=== PATIENT | female | born 1940 | race Caucasian/White ===

== ENCOUNTER 2019-06-19 09:49 | Outpatient (CLI) | payer MEDICARE, SELFPAY ==
[2019-06-19] VITALS (9 sets, daily range): BP systolic 128–154; BP diastolic 65–81; PULSE 67–85; RESP 15–16; TEMP 36.1; O2SAT 94–100
--- NOTE | 2019-06-19 09:51 | DI.RAD.S_ITS ---
PROCEDURE: PAIN C/T INTERLAMINAR INJECT INDICATIONS: RADICULOPATHY FINDINGS: Fluoroscopic spot filming was performed to verify placement of spinal needles at the C6-7 level(s), as labeled on the films. Appropriate location(s) of the needle tip(s) was confirmed by injection of iodinated contrast. IMPRESSION: Successful needle tip localization over the neck midline at the C6-7 interlaminar level for epidural steroid injection. Dictated by: César Dumont M.D. on 06/19/2019 at 14:17 Approved by: César Dumont M.D. on 06/19/2019 at 14:17
[2019-06-19] MEDS: MIDAZOLAM 5 MG/5 ML VIAL IV (12:00)
[2019-06-19] MEDS: IOPAMIDOL 15 ML VIAL 3 ML INJ (12:07)
[2019-06-19] MEDS: DEXAMETHASONE 10 MG/ML VIAL 20 MG INJ (12:07)
[2019-06-19] MEDS: BUPIVACAINE 0.25% (PF) VIAL 2 ML INJ (12:07)
--- NOTE | 2019-06-19 12:11 | PC.NURSE ---
ASSISTING PT OFF TABLE AND TRANSPORTING TO POST PROC AREA IN STABLE CONDITION. PASSING RN CARE OF PT OFF TO RICKY De La Torre RN.
--- NOTE | 2019-06-19 12:14 | PM.PROC.1 ---
Procedures Date/Time Date of procedure: 06/19/19 Time of procedure: 12:14 General Procedure description: PREOP DIAGNOSIS 1. CERVICAL STENOSIS, 2. CERVICAL HNP WITH UPPER EXTREMITY RADICULAR FEATURES, POST OP DIAGNOSIS 1. CERVICAL STENOSIS, 2. CERVICAL HNP WITH UPPER EXTREMITY RADICULAR FEATURES, PROCEDURES 1. FLUORSCOPICALLY GUIDED CONTRAST CONTROLLED INTERLAMINAR EPIDURAL STEROID INJECTION - C6/7 TL NANDA PHYSICIAN: Mario Valladares DO INDICATIONS Marita is referred by ARASH Davis for treatment of Cervical HNP with Upper Extremity Paresthesias. FINDINGS Cervical Stenosis due to disc deterioration and nerve root irritation and nerve root irritation DESCRIPTION OF PROCEDURE Fluoroscopically guided, contrast-controlled C6/7 translaminar epidural steroid injection with conscious sedation. Following review of allergy and review of potential side effects and complications, including, but not necessarily limited to, infection, allergic reaction, local tissue breakdown, temporary as well as permanent nerve injury, stroke, paralysis, and possible , the patient indicated that patient understood and agreed to proceed. An informed consent document was signed by the patient, witnessed by a nurse, and placed in the patient's chart. Additionally, other treatment options including modalities, medications, and physical therapy were reviewed with the patient. After review of previous anaesthesic history and IV conscious sedation the patient was deemed safe to proceed with todays procedure with IV conscious sedation as ASA class II designation. Safety time-out was performed to confirm patient ID, procedure to be performed and site of procedure. IV sedation was accomplished with 2mg of Versed administered by the RN after DO order, titrated to patient comfort during the course of the procedure while the patient remained responsive to all verbal commands. In the prone position, following sterile prep and drape of the cervical region, the C6/7 translaminar space was identified fluoroscopically. The skin was anesthetized via a 25-gauge 1.5-inch needle with 0.25% marcaine solution. At this point, a 25-gauge, 2.5-inch short bevel spinal needle was atraumatically introduced and advanced under fluoroscopic guidance into epidural space at the C6/7 translaminar space. Depth was confirmed on lateral view. Radiological data, including multiple fluoroscopic views of the cervical spine, reveal a spinal needle at the C6/7 translaminar space. Lateral views then show placement of the needle in the epidural space. Subsequent views show contrast material flowing superiorly and inferiorly in the epidural space. DSA fluoroscopy with live contrast injection, once again, confirmed no vascular or intrathecal uptake. At this point, using loss of resistance technique with saline and air, the epidural space was entered. Following negative aspiration, injection of approximately 1.5 cc of Isovue-200 with live fluoroscopy in the AP view confirmed epidural flow in the epidural space without vascular or intrathecal uptake observed. Subsequently, a test dose of 1 cc of 1% lidocaine solution was injected and patient was observed for two minutes without signs or symptoms of complications, including abdominal pain, shortness of breath, bilateral upper or lower extremity weakness, nausea and vomiting, prior to steroid injection. At this point, 2cc or 20mg of dexamethasone was then injected without incident. The patient tolerated the procedure well without signs or symptoms of complications prior to being transferred to the recovery area for further monitoring, The patient was then transferred to the recovery area where they were observed for an appropriate period of time after the injection. The patient reported a VAS score of 6 prior to the procedure and a post-procedure VAS of 0. Total Fluoroscopy Time: 11 seconds Total Conscious Time: 24min POST OP INSTRUCTIONS The patient was provided a Pain Log to continue to record their response to the target-specific procedure prior to follow-up visit with the referring provider. Additionally, specific post-injection care instructions and a contact number to our office were provided if concerns arise regarding possible complications associated with the procedure are suspected. Mario Valladares DO Complications: none
== END 2019-06-19 12:59 | disposition home or self-care (01) ==
LOC: RAD 09:50
PROVIDERS: PCP Nurse Practitioner Family; Referring Provider Physical Medicine & Rehabilitation; Visit Provider Physical Medicine & Rehabilitation
DX: M48.02 Spinal stenosis, cervical region (principal); M50.123 Cervical disc disorder at C6-C7 level with radiculopathy; R20.2 Paresthesia of skin
CPT/HCPCS: 62321; 99152; J1100; J2250; J3010

== ENCOUNTER → 2019-07-19 12:06 | Outpatient (CLI) | payer MEDICARE, SELFPAY ==
--- NOTE | 2019-07-19 | DI.MRI.S_ITS ---
PROCEDURE: MR WRIST LT WO CON INDICATIONS: Pain in left hand TECHNIQUE: Noncontrast coronal proton density fast spin echo and T2 fast spin echo with fat saturation; coronal 3-D gradient echo, axial T1 spin echo and T2 fast spin echo with fat saturation, sagittal T1 spin echo through the wrist. COMPARISON: None. FINDINGS: Image quality: Excellent. Bones and cartilage: The carpal bones are normally aligned. No bone marrow contusions or fractures. No evidence for avascular necrosis. First CMC and triscaphe joint degeneration, severe. There is diffuse carpal degenerative cystic change. Small cyst also present in the distal radius. Carpal ligaments: The scapholunate ligament is not well-seen and there is heterogeneous signal in its expected location. Suggest scapholunate ligament tear. Lunotriquetral ligament appears intact In the absence of intra-articular contrast, the extrinsic carpal ligaments are not well identified. On sagittal images, the pisohamate ligament appears intact. Triangular fibrocartilage complex: Ill-defined signal change involving the central disc of the TFCC, image 7/4. The adjacent meniscal homolog appears normal in the absence of intra-articular contrast. The extensor carpi ulnaris tendon is normal in location and morphology. Tendons and soft tissues: The flexor tendons within the carpal tunnel appear grossly intact although there is surrounding mild tenosynovitis and T2 hyperintensity in keeping with the patient's given clinical history of chronic carpal tunnel syndrome There is slight T2 hyperintense appearance of the median nerve on image 15/9 although this finding is technically indeterminate Fluid surrounding the abductor pollicis longus and extensor pollicis brevis in keeping with de Quervain's tenosynovitis The ulnar nerve appears normal within Guyon's canal. All six extensor tendon compartments demonstrate normal morphology, without pathologic tendon sheath fluid. No soft tissue ganglion cysts. IMPRESSION: Diffuse tenosynovitis involving the flexor tendons within the carpal tunnel in keeping with patient's given clinical history of long-standing carpal tunnel syndrome Ill-defined tear involving the central disc of the TFCC which could be chronic/degenerative. Heterogeneous signal and poor visualization of the scapholunate ligament, suggestive of scapholunate ligament tear. Mild de Quervain's tenosynovitis. 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 Diffuse carpal and distal radial degenerative cystic change Dictated by: Janusz Dobbs M.D. on 07/19/2019 at 17:36 Approved by: Janusz Dobbs M.D. on 07/19/2019 at 17:45
== END ==
PROVIDERS: PCP Nurse Practitioner Family; Referring Provider Nurse Practitioner Family; Visit Provider Nurse Practitioner Family
DX: M79.642 Pain in left hand (principal); S63.592A Other specified sprain of left wrist, initial encounter; M65.842 Other synovitis and tenosynovitis, left hand; M65.4 Radial styloid tenosynovitis [de Quervain]; M18.12 Unilateral primary osteoarthritis of first carpometacarpal joint, left hand; G56.02 Carpal tunnel syndrome, left upper limb; G89.29 Other chronic pain
CPT/HCPCS: 73221